=== PATIENT | male | born 1955 | race Caucasian/White ===

== ENCOUNTER → 2020-09-11 14:37 | Outpatient (CLI) | payer OTHER, SELFPAY ==
[2020-09-11 16:07] LABS: COVID19 -Nasal RAPID Negative (Negative)
== END ==
PROVIDERS: Family Provider Family Medicine; PCP Family Medicine; Visit Provider Physician Assistant
DX: Z20.822 Contact with and (suspected) exposure to COVID-19 (principal)
CPT/HCPCS: 87635

== ENCOUNTER 2020-09-13 13:33 | Day surgery (SDC) | payer OTHER, SELFPAY ==
--- NOTE | 2020-09-13 | PATH_ITS ---
[facility] Accession Number: [id number] . 01 Material submitted: . sigmoid colon - SIGMOID COLON MASS AT 37 CM . 02 Diagnosis: Sigmoid Colon, Mass at 37 cm, Biopsy: Colonic mucosa with no diagnostic abnormality. Negative for active, chronic and microscopic colitis. Negative for dysplasia and malignancy. MRV 09/20/2020 1313 Local . 02 Comment: Multiple additional deeper levels were examined. . . 02 Electronically signed: . Kayy Washington MD, Pathologist NPI- [id number] . 01 Gross description: . SIGMOID COLON MASS AT 37 CM: Received in formalin is 1 fragment(s) of cardoso, soft tissue measuring 0.2 x 0.2 x 0.1 cm submitted entirely in 1 cassette(s) /GERMAN 09/16/2020 1857 Local . 02 Pathologist provided ICD-10: K63.5 . 02 CPT . 755025 Performed at: 01 [facility] [address], [place], [place] [id number] MD Reuben Cook MD Phone: [phone] Performed at: 02 [facility] [place] [address] [place], [place] [id number] MD Kayy Washington MD Phone: [phone]
--- NOTE | 2020-09-13 12:05 | P.HP_ITS ---
History of Present Illness History of Present Illness Date Patient Seen: 09/13/20 Chief complaint: [facility] Narrative: 64 Years Old Male seen today for consideration of a screening colonoscopy. Has had two lifetime colonoscopies, first in 2009, reported polyps, unsure of type. Last colonoscopy in 2014 indicated for history of polyps, significant for a small internal hemorrhoid and a tubular adenoma and hyperplastic polyp in the sigmoid colon, both small. There have been no lower GI symptoms suggesting disease such as change in bowel habits, bleeding, abdominal pain or anemia. There's been no family history of colon cancer or colon polyps. Overall health issues have been stable, including no major cardiac events for at least 6 weeks. Past Medical History: DIABETES MELLITUS, TYPE II Seborrheic keratosis inflamed HYPERLIPIDEMIA HYPOTHYROIDISM DERMATOFIBROMA VERTIGO COLONIC POLYPS Past Surgical History: Right blocked ureter (1976,1977) Colonoscopy, 09/18/2014, tubular adenoma, hyperplastic, sigmoid Colnosocpy, 2009 Family History: Father: Alcohol Mother: Breast Cancer, Diabetes Siblings: sister- rectal tumor, brother- aneurism Social History: Marital Status: Children: Ga (1994), Latasha (2004), Vilma (1992) Occupation: [employer] Education: 12 years Caffeine use/day: 4-5 HIV High Risk Behavior: no Meds Home Medications and Allergies Home Medications Medication Instructions Recorded Confirmed Type levothyroxine [Synthroid] 50 mcg PO QDAY #0 08/31/16 09/13/20 History Fish Oil 1 tab-cap PO DAILY 09/13/20 09/13/20 History Glucosamine 1 tab PO DAILY 09/13/20 09/13/20 History ezetimibe 10 mg PO DAILY 09/13/20 09/13/20 History insulin NPH and regular human 20 unit SUBCUT QPM 09/13/20 09/13/20 History [Humulin 70/30 U-100 Insulin] insulin NPH and regular human 25 unit SUBCUT QAM 09/13/20 09/13/20 History [Humulin 70/30 U-100 Insulin] metformin 1,000 mg PO BID 09/13/20 09/13/20 History vitamin E 1 tab-cap PO DAILY 09/13/20 09/13/20 History Allergies Allergy/AdvReac Type Severity Reaction Status Date / Time No Known Drug Allergies Allergy Verified 09/13/20 14:03 Review of Systems Review of Systems ROS: Yes All systems reviewed with the patient and are negative except as otherwise documented Exam Narrative Exam Narrative: GENERAL: Alert and oriented, appearing stated age and in no acute distress. HEENT: Head normocephalic/atraumatic. Pupils equal, round, and reactive to light and accomodation. Extraocular muscles intact. Tympanic membranes clear. Nasal mucosa moist, septum midline. Oral mucosa moist, no lesions. Neck soft and supple, no lymphadenopathy. LUNGS: Clear to ausculation bilaterally, no wheezes, rhonchi or rales. CV: Normal S1 and S2 with regular rate and rhythm, no audible murmurs, rubs or gallops. ABDOMEN: Soft, non-tender, non-distended, no organomegaly. Positive bowel sounds. EXTREMITIES: No clubbing, cyanosis, or edema. NEURO: Cranial nerves II through XII grossly intact, no focal deficits. PSYCH: Alert and oriented x 3. SKIN: No concerning lesions. Assessment & Plan Assessment & Plan narrative: 1. History of colon polyps 2. Screening for colon cancer Plan for colonoscopy. The nature and character of the procedure as well as anticipated results were discussed. The possibility of not completing the procedure was also discussed. Possible complications including aspiration pneumonia, bleeding, perforation and reaction to medications either for sedation or preparation and missed lesions were discussed. Questions were answered and proceeding to the colonoscopy was elected. Informed consent signed. I sincerely appreciate the referral allowing me to participate in this patient's care. Please contact me with any questions or concerns.
--- NOTE | 2020-09-13 12:07 | PM.OP.ENDO ---
Operative Date/Time/Diagnoses Date of procedure: 09/13/20 Procedure Notes SCOAP/Timeout: 14:38 Procedure in detail: ENDOSCOPIST: Nia Hinton MD Sedation RN: Maribell Ivan RN Sedation start time: 2:39 p.m. Sedation end time: 3:08 p.m. PROCEDURE: Colonoscopy with targeted biopsy INDICATIONS: 1. History of colon polyps 2. Screening for colon cancer MEDICATION: Levsin 0.125 mg sublingual, incremental doses of Versed and fentanyl until appropriate level sedation achieved. ASA CLASS: 2 CECAL WITHDRAWAL TIME: 9 minutes COMPLICATIONS: None. EXTENT OF PROCEDURE: Cecum. QUALITY OF PREP: Good with portions of liquid stool. PROCEDURE: Prior to insertion of the colonoscope, a digital rectal examination was accomplished with circumferential palpation of the distal rectal mucosa without significant findings being noted. The high-definition colonoscope was passed into the rectum in the usual fashion and advanced over to the cecum without difficulty. The ileocecal valve, appendiceal stoma, and medial wall all could be inspected and no abnormalities were seen. ASCENDING COLON: As the colonoscope was withdrawn, care was taken to expose and inspect the haustral folds and no abnormalities were seen. HEPATIC FLEXURE: Normal, no polyps, diverticula or other abnormalities. TRANSVERSE COLON: Normal, no polyps, diverticula or other abnormalities. DESCENDING COLON: Normal, no polyps, diverticula or other abnormalities. SIGMOID COLON: 1 cm cystic mass at 37 cm, targeted biopsy x1 taken. Otherwise, no diverticula or other abnormalities. RECTUM: Normal. J maneuver was produced. There was no significant perianal disease. The J maneuver was broken. The remainder of the rectum was inspected and there was a small internal hemorrhoid, otherwise no external hemorrhoid disease. The scope was withdrawn. IMPRESSION: 1. Cystic mass, 1 cm in size, located at 37 cm, targeted biopsy taken x1 2. Internal hemorrhoid x1 PLAN: 1. Follow-up in clinic status post pathology results. The possibility of a missed lesion including a malignancy has been discussed with the patient previously. Potential alarm symptoms have been discussed and should be reported immediately.
[2020-09-13] MEDS: LACTATED RINGERS 1,000 ML 200 ML IV (13:55)
[2020-09-13 14:23] VITALS: BP 122/73; PULSE 77; RESP 18; TEMP 36.2; O2SAT 99; BMI 25.2
[2020-09-13] MEDS: fentaNYL 250 MCG/5 ML INJ IV (14:36)
[2020-09-13] MEDS: MIDAZOLAM 5 MG/5 ML VIAL IV (14:37)
[2020-09-13 15:14] VITALS: BP 98/65; PULSE 71; RESP 14; TEMP 36.4; O2SAT 96
[2020-09-13 15:19] VITALS: BP 95/61; PULSE 69; RESP 10; O2SAT 98
[2020-09-13 15:24] VITALS: BP 99/64; PULSE 69; RESP 16; O2SAT 98
[2020-09-13 15:29] VITALS: BP 104/57; PULSE 77; RESP 16; O2SAT 98
[2020-09-13 15:35] VITALS: BP 101/56; PULSE 72; RESP 11; O2SAT 98
== END 2020-09-13 15:42 | disposition home or self-care (01) ==
PROVIDERS: Family Provider Family Medicine; PCP Family Medicine; Referring Provider Student in an Organized Health Care Education/Training Program; Visit Provider Student in an Organized Health Care Education/Training Program
PROC: 0DJD8ZZ Inspection of Lower Intestinal Tract, Via Natural or Artificial Opening Endoscopic (ICD-10-PCS; CPT 45378; principal; 2020-09-13 14:30)
DX: Z12.11 Encounter for screening for malignant neoplasm of colon (principal); Z86.010 Personal history of colon polyps; K64.8 Other hemorrhoids; K63.5 Polyp of colon
CPT/HCPCS: 45380; J2250; J3010

== ENCOUNTER → 2020-12-06 13:49 | Outpatient (CLI) | payer OTHER, SELFPAY ==
[2020-12-06] MEDS: COVID-19 VACC #1, MRNA(MOD) 100 MCG/0.5 ML VIAL IM (13:58)
== END ==
PROVIDERS: Family Provider Family Medicine; PCP Family Medicine; Visit Provider Internal Medicine
DX: Z23 Encounter for immunization (principal)
CPT/HCPCS: 0011A; 91301

== ENCOUNTER → 2021-01-03 13:52 | Outpatient (CLI) | payer OTHER, SELFPAY ==
[2021-01-03] MEDS: COVID-19 VACC #2, MRNA(MOD) 100 MCG/0.5 ML VIAL IM (14:02)
== END ==
PROVIDERS: Family Provider Family Medicine; PCP Family Medicine; Visit Provider Internal Medicine
DX: Z23 Encounter for immunization (principal)
CPT/HCPCS: 0012A; 91301

== ENCOUNTER 2021-09-21 19:15 | Emergency (ER) | payer OTHER, SELFPAY ==
[2021-09-21 19:27] VITALS: BP 163/87; PULSE 75; RESP 16; TEMP 36.8; O2SAT 98; BMI 25.6
--- NOTE | 2021-09-21 19:35 | ED.CHESTPAIN ---
HPI - Chest Pain General Chief Complaint: Chest Pain Stated Complaint: UNABLE TO SLEEP/SEVERE BACK PAIN Time Seen by Provider: 09/21/21 19:33 History of Present Illness HPI narrative: 65-year-old male former smoker with history of diabetes presents with his and a chief complaint of difficulty with sleeping and lying flat over the past 2 weeks or so. He states that for the past 2 weeks when he attempts to lie flat at night to sleep he feels an odd sensation in his chest makes him feel anxious and heavy. He denies any shortness of breath but admits to some dizziness when lying flat. He states he had a similar set of circumstances in the late and after multiple referrals and up at [facility] nose [facility] throat without any significant findings. He states he feels fine throughout the course of the day and denies any chest pain or shortness of breath. He denies any other exertional symptoms and is otherwise largely well and free of complaint. He denies runny nose, sore throat or cough. He denies any ear pain, ringing or drainage. He states that he has been unable to sleep in his bed has been in a recliner for the past few days and has developed some left lower back pain with spasms. He denies any radiation of the pain into his legs. He denies any numbness, tingling or weakness. He denies any loss of control of bowel or bladder. He denies any trauma, fever or chills Related Data Home Medications Medication Instructions Recorded Confirmed levothyroxine 50 mcg tablet 50 mcg PO QDAY #0 08/31/16 09/13/20 (Synthroid) Fish Oil 1 tab-cap PO DAILY 09/13/20 09/13/20 Glucosamine 1 tab PO DAILY 09/13/20 09/13/20 ezetimibe 10 mg tablet 10 mg PO DAILY 09/13/20 09/13/20 insulin human U-100 NPH-regulr 20 unit SUBCUT QPM 09/13/20 09/13/20 70-30 mix 100 unit/mL subcutaneous susp (Humulin 70/30 U-100 Insulin) insulin human U-100 NPH-regulr 25 unit SUBCUT QAM 09/13/20 09/13/20 70-30 mix 100 unit/mL subcutaneous susp (Humulin 70/30 U-100 Insulin) metformin 1,000 mg tablet 1,000 mg PO BID 09/13/20 09/13/20 vitamin E 1 tab-cap PO DAILY 09/13/20 09/13/20 Previous Rx's Medication Instructions Recorded cyclobenzaprine 10 mg tablet 10 mg PO TID PRN #14 tab 09/21/21 meclizine 25 mg tablet 25 mg PO BID-TID PRN #14 tab 09/21/21 Allergies Allergy/AdvReac Type Severity Reaction Status Date / Time No Known Drug Allergies Allergy Verified 09/13/20 14:03 Review of Systems Review of Systems Narrative: GENERAL: See HPI HEENT: See HPI RESPIRATORY: See HPI CARDIOVASCULAR: See HPI GASTROINTESTINAL: Denies nausea, vomiting, abdominal pain, diarrhea, constipation, melena. : Denies dysuria, frequency, incontinence, hematuria, urinary retention. MUSCULOSKELETAL: See HPI SKIN: Denies rash, skin lesions, or other NEUROLOGIC: See HPI. PSYCHIATRIC: No concerning psychosocial issues. 12 point review of systems is negative except for those stated above Patient History Social History household members: spouse and family Smoking Status: Former smoker alcohol intake: never Smoking Status: Former smoker Substance Use Type: does not use Exam Narrative Exam Narrative: GENERAL: [65 year old patient appears stated age. Well-developed patient, in mild distress, rubbing his left lower back, clearly uncomfortable HEAD: Atraumatic. Normocephalic. EYES: Pupils equal round and reactive. Extraocular motions intact. No scleral icterus. No injection or drainage. ENT: Nose without bleeding, purulent drainage. Throat without erythema, tonsillar hypertrophy or exudate. Airway patent. NECK: Trachea midline. Non tender CARDIOVASCULAR: Regular rate and rhythm without murmurs, gallops, or rubs. RESPIRATORY: Clear to auscultation. Breath sounds equal bilaterally. No wheezes, rales, or rhonchi. GASTROINTESTINAL: Abdomen soft, non-tender, nondistended. EXTREMITIES: No edema or joint tenderness. BACK: printing gray cloth tender but free of any obvious external abnormalities. Patient exam notes decreased range of motion and muscle spasm, but no CVA tenderness, or vertebral point tenderness. There are no symptoms of cauda equina such as saddle anesthesia, and decreased reflexes, decreased sensation or strength. NEURO: AOx3. SKIN: No rash or erythema of visible areas Initial Vital Signs Initial Vital Signs: Vital Signs Temperature 98.3 F 09/21/21 19:27 Pulse Rate 75 09/21/21 19:27 Respiratory Rate 16 09/21/21 19:27 Blood Pressure 163/87 H 09/21/21 19:27 Pulse Oximetry 98 09/21/21 19:27 Course Orders Ordered: ED Orders 09/21/21 19:32 Complete Blood Count AUTO DIFF Stat Comprehensive Metabolic Panel Stat Lipase Stat Troponin & CK Cardiac Panel Stat 09/21/21 19:38 XR chest 1V Stat 09/21/21 19:49 EKG-12 Lead Stat Discontinued Medications Aspirin (Aspirin 81 Mg Chew Tab) 324 mg PO NOW ONE Stop: 09/21/21 19:39 Last Admin: 09/21/21 20:03 Dose: Not Given Documented by: ROGERIO Cyclobenzaprine HCl (Cyclobenzaprine 10 Mg Prepack) 1 bottle MISC SEEINSTR ONE Stop: 09/21/21 22:26 Last Admin: 09/21/21 22:41 Dose: 1 bottle Documented by: CLEMENTINA Lorazepam (Lorazepam 2 Mg/Ml Inj) 0.5 mg IV NOW ONE Stop: 09/21/21 21:40 Last Admin: 09/21/21 21:59 Dose: 0.5 mg Documented by: CLEMENTINA Meclizine HCl (Meclizine Hcl 12.5 Mg Tablet) 25 mg PO NOW ONE Stop: 09/21/21 21:40 Last Admin: 09/21/21 21:59 Dose: 25 mg Documented by: CLEMENTINA Vital Signs Vital signs: Vital Signs - 8 hr 09/21/21 22:44 Pulse Rate 73 Respiratory Rate 13 Blood Pressure 133/68 Pulse Oximetry 95 MDM - Chest Pain Lab Data Result diagrams: 09/21/21 19:32 09/21/21 19:32 Labs: Lab Results 09/21/21 09/21/21 Range/Units 19:32 19:32 WBC 7.9 (4.5-11.0) X10^3/uL RBC 4.44 L (4.5-5.9) X10^6/uL Hgb 13.2 L (13.5-17.5) g/dL Hct 39.4 L (41-53) % MCV 88.7 (80-100) fL MCH 29.8 (26-34) PG MCHC 33.6 (30-36) % RDW 13.7 (11.6-14.8) % Plt Count 299 (150-400) X10^3/uL Neut % (Auto) 65.7 (50-75) % Lymph % (Auto) 20.9 L (25-40) % Brook[place] % (Auto) 8.7 (3-14) % Eos % (Auto) 3.7 (2-4) % Baso % (Auto) 1.0 (0-2) % Neut # (Auto) 5200 (1447-6180) /uL Lymph # (Auto) 1600 (0075-0479) /uL Brook[place] # (Auto) 700 (0-900) /uL Eos # (Auto) 300 (0-450) /uL Baso # (Auto) 100 (0-100) /uL Sodium 137 (137-145) mmol/L Potassium 4.3 (3.4-5.1) mmol/L Chloride 105 (98-107) mmol/L Carbon Dioxide 27 (22-32) mmol/L BUN 16 (9-20) mg/dL Creatinine 0.93 (0.66-1.25) mg/dL Estimated GFR > 60.0 (>60) mL/min BUN/Creatinine Ratio 17.2 (6-22) Glucose 102 (80-110) mg/dL Calcium 9.9 (8.4-10.2) mg/dL Total Bilirubin 0.3 (0.2-1.3) mg/dL AST 24 (17-59) IU/L ALT 31 (<50) IU/L Alkaline Phosphatase 27 L (38-126) U/L Total Creatine Kinase 113 (55-170) U/L CK-MB (CK-2) 1.23 (<2.37) ng/mL CK-MB (CK-2) Rel Index 1.1 L (1.5-5.0) % Troponin I < 0.012 (0.01-0.034) ng/mL Total Protein 8.0 (6.3-8.2) g/dL Albumin 4.8 (3.5-5.0) g/dL Globulin 3.2 (1.7-4.1) g/dL Albumin/Globulin Ratio 1.5 (1.0-2.8) Lipase 146 (23-300) U/L Point of Care Testing Glucose POC 99 Imaging Data Chest x-ray: Radiologist's Impression: Close Chest X-Ray (Signed) Abdi Fenton - 09/21/21 Telemetry Strips 09/13/20 Launch?[address] [address] XRay Report Signed Patient: Bahman Day MR#: [id number] : 1955 Acct:[id number] Age/Sex: 65 / M Date of Service: 09/21/21 Loc: ED Accession Number: [id number] ?? Procedure: XR chest 1V Ordering Provider: Geoff Hernandez D.O. PROCEDURE:? XR CHEST 1V ? INDICATIONS:? chest pain ? TECHNIQUE:? One view of the chest was acquired.? ? COMPARISON:? None. ? FINDINGS:? ? Surgical changes and devices:? None.? ? Lungs and pleura:? Lungs are clear.? No pleural effusions or pneumothorax.? ? Mediastinum:? Mediastinal contours appear normal.? Heart size is normal.? ? Bones and chest wall:? No suspicious bony lesions.? Overlying soft tissues appear unremarkable.? ? IMPRESSION:? No acute cardiopulmonary pathology. ? ? Dictated by: Abdi Fenton M.D. on 09/21/2021 at 20:07 ? ? Approved by: Abdi Fenton M.D. on 09/21/2021 at 20:07 ? MDM Narrative Medical decision making narrative: Multiple etiologies for patient's symptoms considered including: [Cardiac disease including ischemia and CHF versus peripheral vertigo versus other Patient's symptoms improved over duration of stay with above-stated therapies. Findings and discharge diagnosis discussed with patient/family followed by verbalization of understanding Return precautions discussed with patient/family whom verbalize understanding. Discharge Plan Departure Patient Disposition: Home Clinical Impression: Back pain, Dizziness Activity Restrictions/Additional Instructions: *You have been diagnosed with [dizziness and back pain. Thankfully, your history, physical exam and labs are very reassuring *What to do: *Please continue to take your regular medications as directed. [x ] New medication prescriptions sent to your pharmacy: [[facility] ] [ ] New medication written as a paper prescription [ ] No new medications given *Please follow up with your primary care provider in 2-3 days, call for an appointment. Let them know you were seen in the Emergency Department and that we ask that you be seen in follow up. We will electronically transmit a record of today's note if your PCP is in our system *If you do not have a primary care provider please contact the [facility] Resource line at [phone]. They will ask some questions about your medical history and help get you set up with a doctor in the community. *Return to Emergency Department if you should have any new, worsening or concerning symptoms, such as [fever greater than 101 F, shaking chills, worsening pain, persistent vomiting or other bothersome symptoms] Prescriptions: New cyclobenzaprine 10 mg tablet 10 mg PO TID PRN (Reason: muscle spasm) Qty: 14 0RF meclizine 25 mg tablet 25 mg PO BID-TID PRN (Reason: dizziness) Qty: 14 0RF No Action levothyroxine [Synthroid] 50 MCG tablet 50 mcg PO QDAY Qty: 0 0RF Humulin 70/30 U-100 Insulin 100 unit/mL (70-30) suspension 25 unit SUBCUT QAM 0RF Humulin 70/30 U-100 Insulin 100 unit/mL (70-30) suspension 20 unit SUBCUT QPM 0RF metformin 1,000 mg tablet 1,000 mg PO BID 0RF ezetimibe 10 mg tablet 10 mg PO DAILY 0RF Fish Oil 1 tab-cap PO DAILY 0RF Glucosamine 1 tab PO DAILY 0RF vitamin E 1 tab-cap PO DAILY 0RF Referrals: Chris Castillo MD [Primary Care Provider] -
--- NOTE | 2021-09-21 19:38 | DI.RAD.S_ITS ---
PROCEDURE: XR CHEST 1V INDICATIONS: chest pain TECHNIQUE: One view of the chest was acquired. COMPARISON: None. FINDINGS: Surgical changes and devices: None. Lungs and pleura: Lungs are clear. No pleural effusions or pneumothorax. Mediastinum: Mediastinal contours appear normal. Heart size is normal. Bones and chest wall: No suspicious bony lesions. Overlying soft tissues appear unremarkable. IMPRESSION: No acute cardiopulmonary pathology. Dictated by: Abdi Fenton M.D. on 09/21/2021 at 20:07 Approved by: Abdi Fenton M.D. on 09/21/2021 at 20:07
[2021-09-21 19:52] LABS: Add Manual Diff / Slide Review NO; Basophils Absolute Auto 100 /uL (0-100); Eosinophils Absolute Auto 300 /uL (0-450); Eosinophils Percent Auto 3.7 % (2-4); Hematocrit 39.4 % (41-53); Hemoglobin 13.2 g/dL (13.5-17.5); Lymphocytes Absolute Auto 1600 /uL (1100-4500); Lymphocytes Percent Auto 20.9 % (25-40); Mean Corpuscular HGB Conc 33.6 % (30-36); Mean Corpuscular Hemoglobin 29.8 PG (26-34); Mean Corpuscular Volume 88.7 fL (80-100); Monocytes Absolute Auto 700 /uL (0-900); Monocytes Percent Auto 8.7 % (3-14); Neutrophils Absolute Auto 5200 /uL (1500-7000); Neutrophils Percent Auto 65.7 % (50-75); Platelet Count 299 X10^3/uL (150-400); Red Blood Cell Count 4.44 X10^6/uL (4.5-5.9); Red Cell Distribution Width 13.7 % (11.6-14.8); White Blood Cell Count 7.9 X10^3/uL (4.5-11.0)
[2021-09-21 19:57] LABS: Alanine Aminotransferase 31 IU/L (<50); Albumin 4.8 g/dL (3.5-5.0); Albumin Globulin Ratio 1.5 (1.0-2.8); Alkaline Phosphatase 27 U/L (38-126); Aspartate Aminotransferase 24 IU/L (17-59); BUN Creatinine Ratio 17.2 (6-22); Bilirubin Total 0.3 mg/dL (0.2-1.3); Blood Urea Nitrogen 16 mg/dL (9-20); Calcium 9.9 mg/dL (8.4-10.2); Carbon Dioxide 27 mmol/L (22-32); Chloride 105 mmol/L (98-107); Creatine Kinase 113 U/L (55-170); Estimated Glomerular Filt Rate > 60.0 mL/min (>60); Globulin 3.2 g/dL (1.7-4.1); Glucose 102 mg/dL (80-110); HEMOLYSIS < 15 (0-50); Lipase 146 U/L (23-300); Potassium 4.3 mmol/L (3.4-5.1); Sodium 137 mmol/L (137-145)
[2021-09-21 20:07] LABS: Troponin I < 0.012 ng/mL (0.01-0.034)
[2021-09-21 20:12] LABS: CKMB % Relative Index 1.1 % (1.5-5.0); Creatine Kinase MB 1.23 ng/mL (<2.37)
--- NOTE | 2021-09-21 21:33 | PC.NURSE ---
patient states he has left leg and back pain and it hurts to sit back, when he lays down he feels anxious and then it becomes hard to breathe. He has a pulse ox of 98% on RA and lung sounds clear. His skin is pink, warm, and dry.
[2021-09-21] MEDS: LORazepam 2 MG/ML INJ 0.5 MG IV (21:59)
[2021-09-21] MEDS: MECLIZINE HCL 12.5 MG TABLET 25 MG PO (21:59)
[2021-09-21] MEDS: CYCLOBENZAPRINE 10 MG PREPACK 1 BOTTLE MISC (22:41)
[2021-09-21 22:44] VITALS: BP 133/68; PULSE 73; RESP 13; O2SAT 95
== END 2021-09-21 22:48 | disposition home or self-care (01) ==
PROVIDERS: Emergency Provider Emergency Medicine; Family Provider Family Medicine; PCP Family Medicine
DX: M54.50 Low back pain, unspecified (principal); R42 Dizziness and giddiness; Z87.891 Personal history of nicotine dependence
CPT/HCPCS: 36415; 71045; 80053; 82550; 82553; 82962; 83690; 84484; 85025; 93005; 93010; 96374; 99284; J2060

== ENCOUNTER → 2021-10-20 09:18 | Outpatient (CLI) | payer SELFPAY ==
--- NOTE | 2021-10-20 | DI.ECHO.S_ITS ---
[facility] +---------+ : : [address] : : : : [id number] : : : : Phone: [phone]+ Echocardiogram Report + + :Name: EBENEZER HERNANDEZ Study Date: 10/20/2021 Height: 75 in : :[facility] ReadingLocation: Weight: 200 lb : : Gender: Male BSA: 2.2 m2 : :: 1955 Age: 66 yrs BP: 136/80 mmHg: :Reason For Study: Palpitations : :Ordering Physician: : :TAMMY Performed By: Randall Mitchell : :Referring: JACQUE MARTI : + + Interpretation Summary 1) Normal left ventricular size, wall motion, and systolic function (EF 60- 65%). 2) Normal right ventricular size and function. 3) No significant valvular abnormalities. 4) No prior Echo available for comparison. Procedure: A two-dimensional transthoracic echocardiogram with color flow and Doppler was performed. The study quality was technically adequate. There is no prior echocardiogram noted for this patient. The patient was in normal sinus rhythm during the exam. Left Ventricle: The left ventricle is normal in size. Left ventricular wall thickness is at the upper limits of normal. Left ventricular systolic function appears normal without focal wall motion abnormalities. The ejection fraction is estimated to be 60-65%. Right Ventricle: The right ventricle is normal in size and function. Atria: Both atria are normal in size. There is no Doppler evidence for an interatrial shunt. Mitral Valve: The mitral valve is normal. There is mild mitral regurgitation. Aortic Valve: The aortic valve is trileaflet. The aortic valve opens well. There is no aortic valve stenosis. No aortic regurgitation is present. Tricuspid Valve: The tricuspid valve is normal. There is trace tricuspid regurgitation. The right ventricular systolic pressure is estimated to be at least 18 mmHg based on an estimated right atrial pressure of 3 mm Hg. Pulmonic Valve: The pulmonic valve leaflets are thin and pliable; valve motion is normal. There is trace pulmonic regurgitation. Great Vessels: The aortic root is normal size. The ascending aorta is normal in size. The aortic arch is normal in size. The IVC is of normal diameter and collapses greater than 50% with a sniff. This suggests a low right atrial pressure of 3 mm Hg. Pericardium/ Pleura There is no pericardial effusion. There is an anterior echo-free space consistent with a fat pad. There is no pleural effusion. MMode/2D Measurements & Calculations LVIDd: 4.6 cm LVOT diam: 2.3 cm LVIDs: 2.9 cm Ao root diam: 3.2 cm FS: 37.0 % asc Aorta Diam: 3.3 cm IVSd: 1.0 cm Ao Arch Diam (Prox Trans): 2.9 cm LVPWd: 1.0 cm LV beckford. diameter/BSA (cm/m^2): 2.1 LV sys. diameter/BSA (cm/m^2): 1.3 LA A2 area: 18.9 cm2 RA long axis: 4.6 cm LA A4 area: 18.3 cm2 LA length (vol): 5.6 cm LA vol: 52.2 ml LA vol index: 23.9 ml/m2 LVLs ap4: 6.2 cm LVLd ap2: 7.1 cm LVLs ap2: 6.1 cm TAPSE_phl: 2.1 cm Doppler Measurements & Calculations Ao V2 max: 133.0 cm/sec LVOT Max Jesse: 116.0 cm/sec Ao V2 mean: 98.7 cm/sec LV V1 max P.4 mmHg Ao max P.0 mmHg LV V1 VTI: 20.5 cm Ao mean P.0 mmHg KARIN(I,D): 3.1 cm2 Ao V2 VTI: 27.3 cm KARIN(V,D): 3.6 cm2 sev ratio: 0.75 KARIN indexed to BSA (cm^2/m^2): 1.4 MV E max jesse: 82.3 cm/sec TR max jesse: 192.7 cm/sec MV A max jesse: 62.1 cm/sec TR max P.9 mmHg MV E/A: 1.3 Med Peak E' Jesse: 7.5 cm/sec E/E' med: 10.9 Lat Peak E' Jesse: 8.9 cm/sec E/E' lat: 9.2 E/e' average: 10.1 MV dec time: 0.26 sec SV(LVOT): 85.2 ml AV VR_phl: 0.87 KARIN(VTI)/BSA_phl: 1.4 MV P1/2t-pr_phl: 76.0 msec Reading Physician:01:13 PM
== END ==
PROVIDERS: Family Provider Family Medicine; PCP Family Medicine; Referring Provider Family Medicine; Visit Provider Family Medicine
DX: I34.0 Nonrheumatic mitral (valve) insufficiency (principal); R00.2 Palpitations
CPT/HCPCS: 93242; 93306

== ENCOUNTER → 2021-10-20 13:37 | Outpatient (CLI) | payer SELFPAY ==
--- NOTE | 2021-11-11 10:03 | P.HOLT.S_ITS ---
Professional Benefits Sales Consultant Report Referral & Results Date Patient Seen: 10/20/21 Requesting provider: Chris Castillo Indication: Palpitations Duration of monitoring (days): 7 Diary information: There were 4 patient triggered events. There were no patient diary entries All of the patient events were associated with sinus rhythm only Data: Minimum heart rate identified was 49 beats per minute at 04:17 on 10/22/2021 Maximum sinus heart rate was 133 beats per minute at 18:39 on 10/26/2021 Maximum overall heart rate was 140 beats per minute at 01:50 on 10/24/2021 during a run of SVT/atrial tachycardia Less than 1% of identified beats were ventricular or supraventricular ectopic in origin, which would classify them as rare. 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
== END ==
PROVIDERS: Family Provider Family Medicine; PCP Family Medicine; Referring Provider Family Medicine; Visit Provider Family Medicine
DX: R00.2 Palpitations (principal)
CPT/HCPCS: 93242; 93244

== ENCOUNTER → 2023-01-20 11:02 | Outpatient (CLI) | payer OTHER, SELFPAY ==
--- NOTE | 2023-01-20 | DI.US.S_ITS ---
PROCEDURE: US ABD AORTA ANEURYSM SCREEN INDICATIONS: SCREENING FOR CARDIOVASCULAR DISORDERS TECHNIQUE: Real time scanning was performed of the aorta and iliac arteries, with image documentation. COMPARISON: None. FINDINGS: Aorta: Proximal aortic diameter measures 2.3 cm. Mid-aorta measures 1.7 cm. Distal aortic diameter is 1.5 cm. Iliac arteries: Right common iliac artery measures 0.8 cm. Left common iliac artery measures 0.8 cm. IMPRESSION: Negative for aneurysm. Dictated by: Oscar Mckenzie M.D. on 01/20/2023 at 12:29 Approved by: Oscar Mckenzie M.D. on 01/20/2023 at 12:29
== END ==
PROVIDERS: Family Provider Family Medicine; PCP Family Medicine; Referring Provider Family Medicine; Visit Provider Family Medicine
DX: Z13.6 Encounter for screening for cardiovascular disorders (principal)
CPT/HCPCS: 76706

== ENCOUNTER 2023-03-21 00:07 | Emergency (ER) | payer OTHER, SELFPAY ==
[2023-03-21 00:15] VITALS: BP 144/77; PULSE 75; RESP 16; TEMP 36.2; O2SAT 99; BMI 27.4
== END 2023-03-21 03:35 | disposition left against medical advice (07) ==
PROVIDERS: Emergency Provider Emergency Medicine; Family Provider Family Medicine; PCP Family Medicine
DX: F41.9 Anxiety disorder, unspecified (principal); G47.00 Insomnia, unspecified
CPT/HCPCS: 99281

== ENCOUNTER 2023-03-25 02:22 | Emergency (ER) | payer OTHER, SELFPAY ==
[2023-03-25 02:25] VITALS: BP 145/73; PULSE 96; RESP 18; TEMP 36.4; O2SAT 97; BMI 27.4
[2023-03-25 02:27] VITALS: PULSE 98; O2SAT 98
[2023-03-25 02:30] VITALS: PULSE 100; O2SAT 97
[2023-03-25 02:31] VITALS: BP 145/73; PULSE 95; O2SAT 97
--- NOTE | 2023-03-25 02:47 | ED_ITS ---
HPI - Anxiety General Chief Complaint: Anxiety Stated Complaint: HIGH BLOOD PRESSURE Time Seen by Provider: 03/25/23 02:23 Source: patient Mode of arrival: Ambulatory History of Present Illness HPI narrative: 67-year-old male who for the past year or so has had occasional episodes of insomnia and anxiety. He states that when these events happen they last for a week or so and then seemed to resolve. He currently is having 1 of those ep isodes has been going on for the past week. He states he gets very anxious specifically at nighttime because asleep. This evening he started to feel like he was having palpitations in his heart was beating fast. He also took his blood pressure was elevated. He has tried trazodone in the past but he did not like the way that made him feel the day afterwards. He has been doing Unisom which has only been minimally effective. Related Data Home Medications Medication Instructions Recorded Confirmed levothyroxine 50 mcg tablet 50 mcg PO QDAY ##0 08/31/16 09/13/20 (Synthroid) Fish Oil 1 tab-cap PO DAILY 09/13/20 09/13/20 Glucosamine 1 tab PO DAILY 09/13/20 09/13/20 ezetimibe 10 mg tablet 10 mg PO DAILY 09/13/20 09/13/20 insulin human U-100 NPH-regulr 20 unit SUBCUT QPM 09/13/20 09/13/20 70-30 mix 100 unit/mL subcutaneous susp (Humulin 70/30 U-100 Insulin) insulin human U-100 NPH-regulr 25 unit SUBCUT QAM 09/13/20 09/13/20 70-30 mix 100 unit/mL subcutaneous susp (Humulin 70/30 U-100 Insulin) metformin 1,000 mg tablet 1,000 mg PO BID 09/13/20 09/13/20 vitamin E 1 tab-cap PO DAILY 09/13/20 09/13/20 Previous Rx's Medication Instructions Recorded cyclobenzaprine 10 mg tablet 10 mg PO TID PRN muscle spasm #14 09/21/21 tabs meclizine 25 mg tablet 25 mg PO BID-TID PRN dizziness #14 09/21/21 tabs zolpidem 5 mg tablet (Ambien) 5 mg PO BEDTIME PRN insomnia #14 03/25/23 tabs Allergies Allergy/AdvReac Type Severity Reaction Status Date / Time No Known Drug Allergies Allergy Verified 09/13/20 14:03 Review of Systems Constitutional Constitutional: Reports system reviewed and no additional complaints, except as documented Cardiovascular Cardiovascular: Reports system reviewed and no additional complaints, except as documented Respiratory Respiratory: Reports system reviewed and no additional complaints, except as documented Gastrointestinal Gastrointestinal: Reports system reviewed and no additional complaints, except as documented Psychiatric Psychiatric: Reports system reviewed and no additional complaints, except as documented Patient History Social History household members: spouse and family Smoking Status: Former smoker alcohol intake: never Smoking Status: Former smoker Substance Use Type: does not use Exam Initial Vital Signs Initial Vital Signs: Vital Signs Temperature 97.5 F L 03/25/23 02:25 Pulse Rate 96 H 03/25/23 02:25 Respiratory Rate 18 03/25/23 02:25 Blood Pressure 145/73 H 03/25/23 02:25 Pulse Oximetry 97 03/25/23 02:25 Oxygen Delivery Method Room Air 03/25/23 02:25 Resp Effort & Inspection: normal respiratory effort Auscultation: clear to auscultation bilaterally Cardio Rate: regular rate Rhythm: regular rhythm Psych Appearance: grossly normal and well kempt Course Orders Ordered: ED Orders 03/25/23 02:47 EKG-12 Lead Stat Discontinued Medications Lorazepam (Lorazepam 0.5 Mg Tablet) 1 mg PO NOW ONE Stop: 03/25/23 02:48 Vital Signs Vital signs: Vital Signs - 8 hr 03/25/23 02:25 03/25/23 02:27 03/25/23 02:30 Temperature 97.5 F L Pulse Rate 96 H 98 H 100 H Respiratory Rate 18 Blood Pressure 145/73 H Pulse Oximetry 97 98 97 Oxygen Delivery Method Room Air 03/25/23 02:31 03/25/23 02:31 Temperature Pulse Rate 95 H Respiratory Rate Blood Pressure 145/73 H Pulse Oximetry 97 Oxygen Delivery Method MDM - Anxiety ECG Data Attestation: I personally reviewed and interpreted this ECG as follows: Interpretation: Sinus rhythm Ventricular rate 90 Normal axis Normal QRS Normal QTC No ST T wave changes MDM Narrative Medical decision making narrative: Patient has a benign exam. He has been having problems sleeping at night and also having some anxiety. His EKG is unremarkable. Heart and lungs are unremarkable. I will provide a short course of Ambien to see if this does not improve some of his symptoms. He understands that this may make him drowsy the day afterwards as well. I did advise that he contact his primary doctor for follow-up as he may need further evaluation as to what is causing his anxiety and potentially other medications or other specialist referrals. Was given return precautions. He expressed understanding and agreement. Discharge Plan Departure Patient Disposition: Home Clinical Impression: Insomnia Instructions: DI for Insomnia Activity Restrictions/Additional Instructions: There is a possibility that the Ambien can cause you to have a ?hung over? feeling the next day. Recommend that you start with 1 tablet at night for bedtime however this can be increased to 2 tablets at bedtime if needed. It is important that you contact your primary doctor for a follow-up. Return to the emergency department for new symptoms. Prescriptions: New zolpidem [Ambien] 5 mg tablet 5 mg PO BEDTIME PRN (Reason: insomnia) Qty: 14 0RF No Action levothyroxine [Synthroid] 50 MCG tablet 50 mcg PO QDAY Qty: 0 Humulin 70/30 U-100 Insulin 100 unit/mL (70-30) suspension 25 unit SUBCUT QAM Humulin 70/30 U-100 Insulin 100 unit/mL (70-30) suspension 20 unit SUBCUT QPM metformin 1,000 mg tablet 1,000 mg PO BID ezetimibe 10 mg tablet 10 mg PO DAILY Fish Oil 1 tab-cap PO DAILY Glucosamine 1 tab PO DAILY vitamin E 1 tab-cap PO DAILY cyclobenzaprine 10 mg tablet 10 mg PO TID PRN (Reason: muscle spasm) Qty: 14 0RF meclizine 25 mg tablet 25 mg PO BID-TID PRN (Reason: dizziness) Qty: 14 0RF Referrals: Chris Castillo MD [Primary Care Provider] - Stand Alone Forms: Patient Portal/API
[2023-03-25 03:00] VITALS: PULSE 91; O2SAT 97
[2023-03-25] MEDS: LORazepam 0.5 MG TABLET 1 MG PO (03:05)
[2023-03-25 03:17] VITALS: BP 145/73; PULSE 78; RESP 16; TEMP 36.5; O2SAT 98
== END 2023-03-25 03:20 | disposition home or self-care (01) ==
PROVIDERS: Emergency Provider Emergency Medicine; Family Provider Family Medicine; PCP Family Medicine
DX: G47.00 Insomnia, unspecified (principal); F41.9 Anxiety disorder, unspecified; R07.9 Chest pain, unspecified
CPT/HCPCS: 93005; 99283

== ENCOUNTER 2023-03-26 11:24 | Emergency (ER) | payer OTHER, SELFPAY ==
[2023-03-26] VITALS (7 sets, daily range): BP systolic 136–161; BP diastolic 80–86; PULSE 63–82; RESP 13–17; TEMP 36.5; O2SAT 97–100; BMI 27.2
--- NOTE | 2023-03-26 11:36 | DI.RAD.S_ITS ---
PROCEDURE: XR CHEST 1V INDICATIONS: chest pain TECHNIQUE: One view of the chest was acquired. COMPARISON: [facility], CR, XR CHEST 1V, 09/21/2021, 19:58. FINDINGS: Surgical changes and devices: None. Lungs and pleura: Lungs are clear. No pleural effusions or pneumothorax. Mediastinum: Mediastinal contours appear normal. Heart size is normal. Bones and chest wall: No suspicious bony lesions. Overlying soft tissues appear unremarkable. IMPRESSION: No acute cardiopulmonary abnormality Dictated by: Baron Payne M.D. on 03/26/2023 at 12:24 Approved by: Baron Payne M.D. on 03/26/2023 at 12:25
[2023-03-26] MEDS: LORazepam 0.5 MG TABLET 1 MG PO (11:48)
[2023-03-26 11:50] LABS: Add Manual Diff / Slide Review NO; Basophils Absolute Auto 0 /uL (0-100); Basophils Percent Auto 0.8 % (0-2); Eosinophils Absolute Auto 100 /uL (0-450); Eosinophils Percent Auto 2.4 % (2-4); Hematocrit 40.2 % (41-53); Hemoglobin 13.8 g/dL (13.5-17.5); Lymphocytes Absolute Auto 1200 /uL (1100-4500); Lymphocytes Percent Auto 19.1 % (25-40); Mean Corpuscular HGB Conc 34.3 % (30-36); Mean Corpuscular Hemoglobin 30.1 PG (26-34); Mean Corpuscular Volume 87.7 fL (80-100); Monocytes Absolute Auto 500 /uL (0-900); Monocytes Percent Auto 8.2 % (3-14); Neutrophils Absolute Auto 4300 /uL (1500-7000); Neutrophils Percent Auto 69.5 % (50-75); Platelet Count 288 X10^3/uL (150-400); Red Blood Cell Count 4.59 X10^6/uL (4.5-5.9); Red Cell Distribution Width 14.1 % (11.6-14.8); White Blood Cell Count 6.2 X10^3/uL (4.5-11.0)
[2023-03-26 11:58] LABS: Prothrombin Time 11.7 SECONDS (10.1-12.7)
[2023-03-26 12:01] LABS: Alanine Aminotransferase 52 IU/L (<50); Albumin 4.8 g/dL (3.5-5.0); Albumin Globulin Ratio 1.5 (1.0-2.8); Alkaline Phosphatase 31 U/L (38-126); Aspartate Aminotransferase 35 IU/L (17-59); BUN Creatinine Ratio 15.2 (6-22); Bilirubin Total 0.3 mg/dL (0.2-1.3); Blood Urea Nitrogen 14 mg/dL (9-20); Calcium 9.1 mg/dL (8.4-10.2); Carbon Dioxide 23 mmol/L (22-32); Chloride 101 mmol/L (98-107); Creatine Kinase 365 U/L (55-170); Estimated Glomerular Filt Rate > 60 mL/min (>60); Globulin 3.2 g/dL (1.7-4.1); Glucose 201 mg/dL (80-110); HEMOLYSIS < 15 (0-50); Lipase 922 U/L (23-300); Magnesium 1.9 mg/dL (1.6-2.3); PTT Partial Thromboplastin Tim 36 SECONDS (26-36); Potassium 4.4 mmol/L (3.4-5.1); Sodium 134 mmol/L (137-145)
[2023-03-26 12:13] LABS: Troponin I < 0.012 ng/mL (0.01-0.034)
--- NOTE | 2023-03-26 13:10 | ED.ANXIETY ---
HPI - Anxiety General Chief Complaint: Anxiety Stated Complaint: hypertension/aniexty/Blood sugars 232 Time Seen by Provider: 03/26/23 11:45 Source: patient and family Mode of arrival: Ambulatory History of Present Illness HPI narrative: Patient is a 67-year-old male history of anxiety, type 2 diabetes, insomnia presenting today with anxiety. He was given Ambien from the emergency department today's go to help with his sleeping. He reports that since he had COVID in 2020 he has had difficulty sleeping. He it severe anxiety and feels like can not breathe whenever he lays down. He is tried numerous medications including trazodone Unisom recently Ambien. He says after 1 Ambien pill he did not really feel CVA also 2nd 1 this morning he woke up was extremely anxious. Over the last 1 year he had cardiac workup including echocardiogram and event monitor. EF shows 60-65% event monitor does show PACs PVCs and rare brief runs of SVT/atrial tachycardia. Patient is now seen evaluated after he has been given 1 mg of Ativan he is overall feeling significantly better Related Data Home Medications Medication Instructions Recorded Confirmed levothyroxine 50 mcg tablet 50 mcg PO QDAY ##0 08/31/16 09/13/20 (Synthroid) Fish Oil 1 tab-cap PO DAILY 09/13/20 09/13/20 Glucosamine 1 tab PO DAILY 09/13/20 09/13/20 ezetimibe 10 mg tablet 10 mg PO DAILY 09/13/20 09/13/20 insulin human U-100 NPH-regulr 20 unit SUBCUT QPM 09/13/20 09/13/20 70-30 mix 100 unit/mL subcutaneous susp (Humulin 70/30 U-100 Insulin) insulin human U-100 NPH-regulr 25 unit SUBCUT QAM 09/13/20 09/13/20 70-30 mix 100 unit/mL subcutaneous susp (Humulin 70/30 U-100 Insulin) metformin 1,000 mg tablet 1,000 mg PO BID 09/13/20 09/13/20 vitamin E 1 tab-cap PO DAILY 09/13/20 09/13/20 Previous Rx's Medication Instructions Recorded cyclobenzaprine 10 mg tablet 10 mg PO TID PRN muscle spasm #14 09/21/21 tabs meclizine 25 mg tablet 25 mg PO BID-TID PRN dizziness #14 09/21/21 tabs zolpidem 5 mg tablet (Ambien) 5 mg PO BEDTIME PRN insomnia #14 03/25/23 tabs lorazepam 0.5 mg tablet (Ativan) 0.5 mg PO BEDTIME PRN sleep #2 tabs 03/26/23 Allergies Allergy/AdvReac Type Severity Reaction Status Date / Time No Known Drug Allergies Allergy Verified 03/26/23 11:36 Review of Systems Review of Systems ROS Unobtainable: All systems reviewed & are unremarkable except as noted in HPI and below Patient History Social History household members: spouse and family Smoking Status: Former smoker alcohol intake: never Smoking Status: Former smoker Substance Use Type: does not use Exam Initial Vital Signs Initial Vital Signs: Vital Signs Temperature 97.7 F 03/26/23 11:30 Pulse Rate 82 03/26/23 11:30 Respiratory Rate 16 03/26/23 11:30 Blood Pressure 161/86 H 03/26/23 11:30 Pulse Oximetry 99 03/26/23 11:30 Oxygen Delivery Method Room Air 03/26/23 11:30 GENERAL: Alert pleasant 67-year-old male and in [no acute] distress. HEENT: Head atraumatic,EOMI, pupils reactive, face symmetric, [moist] mucous membranes CARDIOVASCULAR: Regular rate and rhythm without murmurs, rubs or gallops. RESPIRATORY: Breath sounds equal bilaterally, no wheezes rales or rhonchi. ABDOMEN: Soft, nontender. Normoactive bowel sounds all 4 quadrants. No guarding or rebound. EXTREMITIES: Normal range of motion, no clubbing or edema. Neurovascularly intact NEUROLOGICAL: Alert and oriented x4. SKIN: Warm, dry, no laceration, no petechiae, no rashes or lesions. Course Orders Ordered: ED Orders 03/26/23 11:36 XR chest 1V Stat 03/26/23 11:42 Complete Blood Count AUTO DIFF Stat Comprehensive Metabolic Panel Stat Lipase Stat Magnesium Stat PTT Partial Thromboplastin Walt Stat Prothrombin Time INR Stat Troponin & CK Cardiac Panel Stat 03/26/23 11:46 EKG-12 Lead Stat Discontinued Medications Lorazepam (Lorazepam 0.5 Mg Tablet) 1 mg PO NOW ONE Stop: 03/26/23 11:46 Last Admin: 03/26/23 11:48 Dose: 1 mg Documented By: AMV Vital Signs Vital signs: Vital Signs - 8 hr 03/26/23 11:30 03/26/23 12:13 03/26/23 12:13 Temperature 97.7 F Pulse Rate 82 73 Respiratory Rate 16 Blood Pressure 161/86 H 157/80 H Pulse Oximetry 99 100 Oxygen Delivery Method Room Air 03/26/23 12:30 03/26/23 13:00 03/26/23 13:30 Temperature Pulse Rate 72 63 71 Respiratory Rate 13 14 14 Blood Pressure Pulse Oximetry 100 98 Oxygen Delivery Method 03/26/23 14:00 03/26/23 14:07 Temperature Pulse Rate 74 Respiratory Rate 17 Blood Pressure 136/82 Pulse Oximetry 97 Oxygen Delivery Method MDM - Anxiety Lab Data 03/26/23 11:42 03/26/23 11:42 Labs: Lab Results 03/26/23 03/26/23 03/26/23 Range/Units 11:42 11:42 11:42 WBC 6.2 (4.5-11.0) X10^3/uL RBC 4.59 (4.5-5.9) X10^6/uL Hgb 13.8 (13.5-17.5) g/dL Hct 40.2 L (41-53) % MCV 87.7 (80-100) fL MCH 30.1 (26-34) PG MCHC 34.3 (30-36) % RDW 14.1 (11.6-14.8) % Plt Count 288 (150-400) X10^3/uL Neut % (Auto) 69.5 (50-75) % Lymph % (Auto) 19.1 L (25-40) % [place] % (Auto) 8.2 (3-14) % Eos % (Auto) 2.4 (2-4) % Baso % (Auto) 0.8 (0-2) % Neut # (Auto) 4300 (9511-9050) /uL Lymph # (Auto) 1200 (4664-9581) /uL [place] # (Auto) 500 (0-900) /uL Eos # (Auto) 100 (0-450) /uL Baso # (Auto) 0 (0-100) /uL PT 11.7 (10.1-12.7) SECONDS INR 1.0 (0.9-1.3) APTT 36 (26-36) SECONDS Sodium 134 L (137-145) mmol/L Potassium 4.4 (3.4-5.1) mmol/L Chloride 101 (98-107) mmol/L Carbon Dioxide 23 (22-32) mmol/L BUN 14 (9-20) mg/dL Creatinine 0.92 (0.66-1.25) mg/dL Estimated GFR > 60 (>60) mL/min BUN/Creatinine Ratio 15.2 (6-22) Glucose 201 H (80-110) mg/dL Calcium 9.1 (8.4-10.2) mg/dL Magnesium 1.9 (1.6-2.3) mg/dL Total Bilirubin 0.3 (0.2-1.3) mg/dL AST 35 (17-59) IU/L ALT 52 H (<50) IU/L Alkaline Phosphatase 31 L (38-126) U/L Total Creatine Kinase 365 H (55-170) U/L Troponin I < 0.012 (0.01-0.034) ng/mL Total Protein 8.0 (6.3-8.2) g/dL Albumin 4.8 (3.5-5.0) g/dL Globulin 3.2 (1.7-4.1) g/dL Albumin/Globulin Ratio 1.5 (1.0-2.8) Lipase 922 H (23-300) U/L Imaging Data Chest x-ray: Radiologist's Impression: PROCEDURE:? XR CHEST 1V ? INDICATIONS:? chest pain ? TECHNIQUE:? One view of the chest was acquired.? ? COMPARISON:? [facility], , XR CHEST 1V, 09/21/2021, 19:58. ? FINDINGS:? ? Surgical changes and devices:? None.? ? Lungs and pleura:? Lungs are clear.? No pleural effusions or pneumothorax.? ? Mediastinum:? Mediastinal contours appear normal.? Heart size is normal.? ? Bones and chest wall:? No suspicious bony lesions.? Overlying soft tissues appear unremarkable.? ? IMPRESSION:? No acute cardiopulmonary abnormality ? ? Dictated by: Baron Payne M.D. on 03/26/2023 at 12:24 ? ? ECG Data Interpretation: Normal sinus rhythm rate 80 NE interval 164 QRS [address] changes or T-wave inversions [facility] Narrative Medical decision making narrative: Patient 67-year-old male presenting today with insomnia and anxiety. It sounds as though this has been ongoing for more than 1 year. He has been tried on multiple medications he tried Ambien recently had severe anxiety reaction afterwards. Feeling much better after Ativan seems to be the only thing that is helping him. We talked about alternative such as acupuncture. He is had full cardiac workup including an echo. He thinks that this may be related to long COVID difficult to say at this time. Blood work is overall reassuring. He does have an elevated lipase of 922 without signs or symptoms of pancreatitis. Ambien does not seem to be a good choice for him. He restarted his Effexor today which he has been on previously but not in some time. Discharge Plan Departure Patient Disposition: Home Clinical Impression: Anxiety, Insomnia Instructions: Insomnia, DI for Anxiety -- Adult Activity Restrictions/Additional Instructions: *You have been diagnosed with anxiety/insomnia *What to do: Sorry you have to go through this. I would look into CVD and acupuncture. *Continue to take medications as directed Albuterol inhaler 1-2 puffs before leg down to go to sleep this may make you jittery, but may also help you brief. You can also take it every 4 hours if needed for shortness of breath Ativan 0.5 mg at night before bed--> this is for short-term use only and will not be refilled in the emergency depart *Follow up with your primary care provider in 2-3 days or call [phone] *Return to ER if you should have increasing anxiety chest pain palpitations dizziness or any new, worsening or concerning symptoms CONTROLLED SUBSTANCE DISCHARGE (Narcotoic/benzodiazepine/Flexeril/Phenergan) 1. You have been prescribed narcotic medications, it does have acetaminophen/Tylenol/paracetamol in it, DO NOT TAKE MORE THAN 4,00mg in 24 hours of Tylenol. TRAMADOL DOES NOT CONTAIN TYLENOL 2. Please understand that we cannot provide further refills of narcotics, benzodiazepines or controlled substances through the ED and her pain management will need to be through your provider. 3. While on these medications you cannot drive or operate heavy machinery. 4. You cannot sign legal documents or perform any duties such as this. 5. As long as you're taking opiate pain medications he should also be taking a stool softener such as Colace, Dulcolax, MiraLAX or prune juice, to help avoid constipation. Prescriptions: New lorazepam [Ativan] 0.5 mg tablet 0.5 mg PO BEDTIME PRN (Reason: sleep) Qty: 2 0RF No Action levothyroxine [Synthroid] 50 MCG tablet 50 mcg PO QDAY Qty: 0 zolpidem [Ambien] 5 mg tablet 5 mg PO BEDTIME PRN (Reason: insomnia) Qty: 14 0RF Humulin 70/30 U-100 Insulin 100 unit/mL (70-30) suspension 25 unit SUBCUT QAM Humulin 70/30 U-100 Insulin 100 unit/mL (70-30) suspension 20 unit SUBCUT QPM metformin 1,000 mg tablet 1,000 mg PO BID ezetimibe 10 mg tablet 10 mg PO DAILY Fish Oil 1 tab-cap PO DAILY Glucosamine 1 tab PO DAILY vitamin E 1 tab-cap PO DAILY cyclobenzaprine 10 mg tablet 10 mg PO TID PRN (Reason: muscle spasm) Qty: 14 0RF meclizine 25 mg tablet 25 mg PO BID-TID PRN (Reason: dizziness) Qty: 14 0RF Referrals: Chris Castillo MD [Primary Care Provider] - Stand Alone Forms: Patient Portal/API
== END 2023-03-26 14:08 | disposition home or self-care (01) ==
PROVIDERS: Emergency Provider Emergency Medicine; Family Provider Family Medicine; PCP Family Medicine
DX: G47.00 Insomnia, unspecified (principal); F41.9 Anxiety disorder, unspecified; R07.9 Chest pain, unspecified; E11.9 Type 2 diabetes mellitus without complications; Z86.16 Personal history of COVID-19
CPT/HCPCS: 36415; 71045; 80053; 82550; 83690; 83735; 84484; 85025; 85610; 85730; 93005; 99284

== ENCOUNTER 2023-03-27 08:33 | Emergency (ER) | payer OTHER, SELFPAY ==
[2023-03-27 08:39] VITALS: BP 148/70; PULSE 85; O2SAT 99
[2023-03-27 08:45] VITALS: BP 148/70; PULSE 82; RESP 17; TEMP 36.6; O2SAT 100; BMI 26.3
--- NOTE | 2023-03-27 08:51 | ED_ITS ---
HPI - Anxiety General Chief Complaint: Anxiety Stated Complaint: Anxiety, Hard to breathe Time Seen by Provider: 03/27/23 08:35 History of Present Illness HPI narrative: Patient 67-year-old male history of insulin-dependent diabetes presenting for the 3rd time this week. He reports that he had COVID in 2020 it was fairly uneventful but since then he has difficulty sleeping ever since. He reports every time he lays down he feels very anxious unable to sleep he is tried numerous medications both prescribed an [id number] along with marijuana. He was recently prescribed Ambien which did not seem to. He was given Ativan in emergency department which seemed to help. Yesterday I prescribed him a prescription for Ativan. He reports that he took half a mg at 9:00 p.m. but it did not kick in until and then he slept until 3:00 a.m. and was unable to go back to sleep. Today he reports he is feeling groggy. He reports that he is having the same symptoms as he has been. He is frustrated. He did have an echocardiogram, event monitor and abdominal ultrasound all as outpatient. Related Data Home Medications Medication Instructions Recorded Confirmed levothyroxine 50 mcg tablet 50 mcg PO QDAY ##0 08/31/16 09/13/20 (Synthroid) Fish Oil 1 tab-cap PO DAILY 09/13/20 09/13/20 Glucosamine 1 tab PO DAILY 09/13/20 09/13/20 ezetimibe 10 mg tablet 10 mg PO DAILY 09/13/20 09/13/20 insulin human U-100 NPH-regulr 20 unit SUBCUT QPM 09/13/20 09/13/20 70-30 mix 100 unit/mL subcutaneous susp (Humulin 70/30 U-100 Insulin) insulin human U-100 NPH-regulr 25 unit SUBCUT QAM 09/13/20 09/13/20 70-30 mix 100 unit/mL subcutaneous susp (Humulin 70/30 U-100 Insulin) metformin 1,000 mg tablet 1,000 mg PO BID 09/13/20 09/13/20 vitamin E 1 tab-cap PO DAILY 09/13/20 09/13/20 Previous Rx's Medication Instructions Recorded cyclobenzaprine 10 mg tablet 10 mg PO TID PRN muscle spasm #14 09/21/21 tabs meclizine 25 mg tablet 25 mg PO BID-TID PRN dizziness #14 09/21/21 tabs zolpidem 5 mg tablet (Ambien) 5 mg PO BEDTIME PRN insomnia #14 03/25/23 tabs lorazepam 0.5 mg tablet (Ativan) 0.5 mg PO BEDTIME PRN sleep #2 tabs 03/26/23 Allergies Allergy/AdvReac Type Severity Reaction Status Date / Time No Known Drug Allergies Allergy Verified 03/27/23 08:56 Review of Systems Review of Systems ROS Unobtainable: All systems reviewed & are unremarkable except as noted in HPI and below Patient History Social History household members: spouse and family Smoking Status: Former smoker alcohol intake: never Smoking Status: Former smoker Substance Use Type: does not use Exam Initial Vital Signs Initial Vital Signs: Vital Signs Pulse Rate 85 03/27/23 08:39 Blood Pressure 148/70 H 03/27/23 08:39 Pulse Oximetry 99 03/27/23 08:39 GENERAL: Alert pleasant well-appearing 67-year-old and in no acute distress. HEENT: Head atraumatic,EOMI, pupils reactive, face symmetric, moist mucous membranes CARDIOVASCULAR: Regular rate and rhythm without murmurs, rubs or gallops. RESPIRATORY: Breath sounds equal bilaterally, no wheezes rales or rhonchi. ABDOMEN: Soft, nontender. Normoactive bowel sounds all 4 quadrants. No guarding or rebound. EXTREMITIES: Normal range of motion, no clubbing or edema. Neurovascularly intact NEUROLOGICAL: Alert and oriented x4. SKIN: Warm, dry, no laceration, no petechiae, no rashes or lesions. Course Orders Ordered: Discontinued Medications Albuterol (Albuterol Hfa Prepack) [facility] Stop: 03/27/23 08:52 Last Admin: 03/27/23 09:04 Dose: 1 box Documented By: SAT Vital Signs Vital signs: Vital Signs - 8 hr 03/27/23 08:45 03/27/23 09:19 03/27/23 08:39 Temperature 98 F Pulse Rate 82 79 Respiratory Rate 17 20 Blood Pressure 148/70 H 142/72 H 148/70 H Pulse Oximetry 100 97 Oxygen Delivery Method Room Air Room Air 07/22/23 08:39 Temperature Pulse Rate 85 Respiratory Rate Blood Pressure Pulse Oximetry 99 Oxygen Delivery Method MDM - Anxiety MDM Narrative Medical decision making narrative: Patient 67-year-old male who has had longstanding insomnia since COV. He is had outpatient workup including echocardiogram, event monitor, abdominal ultrasound. Other things to consider would be a sleep study and psychiatric evaluation. At laid him down to see what happens. His oxygen remained 99% his heart rate goes up to 92 and blood pressure remained stable. He does not hyperventilating does not become obviously dyspneic or having any conversational dyspnea. He just describes a tightness over his diaphragm. He is an insulin- dependent diabetic it sounds as though with he is awake he checks his glucose regularly. Glucose as night he is never below 150. He reports he only has hy poglycemic episodes when he prolonged once or food during the daytime. Glucose prior to arrival according to patient was 126. Patient has a prescription for Ativan which I gave him yesterday. This time he is awake alert oriented no obvious anxiety hypoxia or conversational dyspnea. Symptoms are consistent with an anxiety reaction. At this point he has had a relatively full workup he has Ativan at home. Will try an albuterol inhaler to see if that helps open his lungs and take away the anxiety but not convinced it will. We also talked how it might make him jittery and feel worse. At this time there is no need for any further emergency department workup or evaluation. He is an appointment with Dr. Castillo April 08. He is in normal sinus rhythm on the monitor. Discharge Plan Departure Patient Disposition: Home Clinical Impression: Anxiety, Insomnia Activity Restrictions/Additional Instructions: *You have been diagnosed with anxiety insomnia *What to do: At this time try the albuterol inhaler if it makes it worse than do not use it. Please continue to check sugar at night to make sure it is not low. *Continue to take medications as directed Ativan at night as needed for insomnia and anxiety *Follow up with your primary care provider in 2-3 days or call [phone] *Return to ER if you should have inability to breathe, chest pain passing out or any new, worsening or concerning symptoms Prescriptions: No Action levothyroxine [Synthroid] 50 MCG tablet 50 mcg PO QDAY Qty: 0 zolpidem [Ambien] 5 mg tablet 5 mg PO BEDTIME PRN (Reason: insomnia) Qty: 14 0RF lorazepam [Ativan] 0.5 mg tablet 0.5 mg PO BEDTIME PRN (Reason: sleep) Qty: 2 0RF Humulin 70/30 U-100 Insulin 100 unit/mL (70-30) suspension 25 unit SUBCUT QAM Humulin 70/30 U-100 Insulin 100 unit/mL (70-30) suspension 20 unit SUBCUT QPM metformin 1,000 mg tablet 1,000 mg PO BID ezetimibe 10 mg tablet 10 mg PO DAILY Fish Oil 1 tab-cap PO DAILY Glucosamine 1 tab PO DAILY vitamin E 1 tab-cap PO DAILY cyclobenzaprine 10 mg tablet 10 mg PO TID PRN (Reason: muscle spasm) Qty: 14 0RF meclizine 25 mg tablet 25 mg PO BID-TID PRN (Reason: dizziness) Qty: 14 0RF Referrals: Chris Castillo MD [Primary Care Provider] - Stand Alone Forms: Patient Portal/API
[2023-03-27] MEDS: ALBUTEROL HFA PREPACK 1 BOX MISC (09:04)
[2023-03-27 09:19] VITALS: BP 142/72; PULSE 79; RESP 20; O2SAT 97
== END 2023-03-27 09:20 | disposition home or self-care (01) ==
PROVIDERS: Emergency Provider Emergency Medicine; Family Provider Family Medicine; PCP Family Medicine
DX: F41.9 Anxiety disorder, unspecified (principal); G47.00 Insomnia, unspecified; Z86.16 Personal history of COVID-19
CPT/HCPCS: 99281; 99283